=== PATIENT | female | born 1960 | race Caucasian/White ===

== ENCOUNTER 2023-11-20 14:54 | Emergency (ER) | payer MEDICARE, OTHER ==
[~2023-11-20] VITALS: Ht 167.6 cm; Wt 93.0 kg
[2023-11-20 15:29] LABS: BASOPHILS ABSOLUTE AUTO 0.05 K/mm3 (0.00-0.23); BASOPHILS PERCENT AUTO 1 % (0-2); EOSINOPHILS PERCENT AUTO 4 % (0-6); Hematocrit 40.8 % (33.0-51.0); Hemoglobin 13.2 g/dL (11.5-16.0); IMMATURE GRAN PERCENT AUTO 1 % (0-1); LYMPHOCYTES ABSOLUTE AUTO 1.73 K/mm3 (0.84-5.20); LYMPHOCYTES PERCENT AUTO 16 % (21-46); MONOCYTES ABSOLUTE AUTO 0.89 K/mm3 (0.16-1.47); MONOCYTES PERCENT AUTO 8 % (4-13); Mean Corpuscular HGB 30.3 pg (26.0-34.0); Mean Corpuscular HGB Conc 32.4 g/dL (31.5-36.5); Mean Corpuscular Volume 94 fL (80-100); Mean Platelet Volume 10.6 fL (9.1-12.4); NEUTROPHILS ABSOLUTE AUTO 7.38 K/mm3 (1.96-9.15); NEUTROPHILS PERCENT AUTO 70 % (41-73); Platelet Count 242 K/mm3 (150-400); RDW Coefficient Variation 13.6 % (11.7-14.2); RDW Standard Deviation 46.2 fL (35.1-46.3); Red Blood Cell Count 4.36 M/mm3 (3.80-5.20); White Blood Cell Count 10.55 K/mm3 (4.00-11.30)
[2023-11-20 15:47] LABS: Albumin, Blood 3.6 g/dL (3.4-5.0); Bilirubin, Total 0.5 mg/dL (0.1-1.0); Bun/Creatinine Ratio 27.9 (12.0-20.0); Creatinine, Blood 0.68 mg/dL (0.40-1.00); Globulin, Blood 3.7 g/dL (2.2-4.0); Potassium, Blood 4.5 mmol/L (3.5-5.5); Total Protein, Blood 7.3 g/dL (6.4-8.2)
[2023-11-20] MEDS ORDERED: LAMOTRIGINE100 M1 PO (20:23)
[2023-11-20] MEDS ORDERED: OXYCODONE-ACET1 EAC2 PO (20:23)
[2023-11-20] MEDS ORDERED: PROPRANOLOL HCL60 MG PO (20:24)
[2023-11-20] MEDS ORDERED: Methocarbamol500 MG PO (20:24)
[2023-11-20] MEDS ORDERED: QUETIAPINE FUMA5012 PO (20:24)
[2023-11-20] MEDS ORDERED: Effexor Xr150 MG PO (20:25)
[2023-11-20] MEDS ORDERED: AMAN100 PO (20:25)
[2023-11-20] MEDS ORDERED: RYTARY ER 61.21 EAC1 PO (20:25)
[2023-11-20] MEDS ORDERED: ENTACAPONE PO (20:25)
[2023-11-20] MEDS ORDERED: PREGABALIN50 MG PO (20:26)
[2023-11-20] MEDS ORDERED: Hydrocortisone 2.5% Cream 30 GM Tube TOP ONE (20:50)
== END 2023-11-20 21:10 | disposition home or self-care (01) ==
LOC: ER 14:54
PROVIDERS: Physician Assistant
DX: R21 Rash and other nonspecific skin eruption (principal); Z79.899 Other long term (current) drug therapy; Z88.2 Allergy status to sulfonamides; Z88.1 Allergy status to other antibiotic agents
CPT/HCPCS: 71046; 80053; 83880; 84484; 85025; 85379; 93005; 93010; 99283-25; A9270